=== PATIENT | male | born 1960 | race Caucasian/White ===

== ENCOUNTER → 2021-02-17 02:22 | Outpatient (CLI) | payer BC, SELFPAY ==
[2021-02-17 18:15] LABS: SARS-CoV-2 RNA PCR Negative
== END ==
PROVIDERS: PCP Internal Medicine; Visit Provider Internal Medicine Gastroenterology
DX: Z01.812 Encounter for preprocedural laboratory examination (principal); Z20.822 Contact with and (suspected) exposure to COVID-19
CPT/HCPCS: C9803; U0003; U0005

== ENCOUNTER 2021-02-20 01:49 | Day surgery (SDC) | payer BC, SELFPAY ==
[2021-02-15 14:31] VITALS: BMI 21.7
[2021-02-20 10:54] VITALS: BP 131/92; PULSE 87; RESP 20; TEMP 36.6; O2SAT 100; BMI 20.8
--- NOTE | 2021-02-20 11:00 | WPDANESEPPF ---
Anes - Initial Pre Proc Eval Procedure: Operation Date: 02/20/21 11:30 Proposed Procedures p Esophagogastroduodenoscopy - Gordo Bah MD Date/Time: 02/20/21 11:00 Surgeon: Gordo Bah MD Pre Op Diagnosis: dysphagia Patient Data Age: 60 Gender: M Height: 1.68 m Weight: 58.6 kg Last Vital Signs Temp 36.6 C 02/20/21 10:54 Pulse 87 02/20/21 10:54 Resp 20 02/20/21 10:54 BP 131/92 H 02/20/21 10:54 Pulse Ox 100 02/20/21 10:54 Allergies Allergy/AdvReac Type Severity Reaction Status Date / Time No Known Allergies Allergy Unknown Verified 02/20/21 10:53 Home Medications Medication Instructions Recorded Confirmed Type niacin 500 mg tablet 500 mg PO DAILY 01/01/20 02/15/21 History omeprazole magnesium 20 mg 20 mg PO DAILY 12/06/20 02/15/21 History tablet,delayed release simvastatin 20 mg tablet 20 mg PO DAILY #90 tablet 12/06/20 02/15/21 Rx Patient hx anesthesia problems: none Family hx anesthesia problems: none PMFSH Past Medical History Medical History (Updated 02/20/21 @ 11:01 by Tonio Galeas MD) Benign essential hypertension Chronic headaches GERD (gastroesophageal reflux disease) Other and unspecified hyperlipidemia Family History Family History Mother Family history of elevated blood lipids Father Family history of diabetes mellitus in first degree relative Diabetes mellitus Hypertension Sibling Family history of diabetes mellitus in first degree relative Social History Social History Smoking status: Never smoker Second hand tobacco smoke exposure: No Alcohol intake: current Alcohol use details: RARELY Substance use: never Substance use type: does not use Living arrangements: alone Spiritual care concerns: No Anes - Eval Final PreProcedure Day of Procedure 02/20/21 11:00 Patient weight: overweight Heart: regular rate and rhythm Lungs: clear to auscultation and normal air movement Airway: Mallampati scale class II Neurological: alert and oriented Last oral intake: >/= 8 hours ASA classification: II Emergent: no Anesthetic plan: proceed Anesthesia type and monitoring: general GIVS Informed Consent: The patient's anesthetic plan and its attendant risks and benefits were discussed with the patient/family/POA. Questions were solicited and answers provided to the satisfaction of the patient/family/POA.
[2021-02-20] MEDS: LACTATED RINGERS 1,000 ML 150 ML IV CONT (11:05)
--- NOTE | 2021-02-20 11:26 | PM.HPGS ---
History of Present Illness History of Present Illness Consent: Risks, benefits, and alternatives have been discussed and questions answered. Patient agrees to proceed with procedure. Chief complaint: dysphagia Narrative: Bruce Goodrich is a 60 year old male With intermittent dysphagia for solid food. His brother and father also had swallowing issues requiring esophageal dilatation. Review of Systems Review of Systems: All systems reviewed & are unremarkable except as noted in HPI and below PMFSH Past Medical History Medical History Benign essential hypertension Chronic headaches GERD (gastroesophageal reflux disease) Other and unspecified hyperlipidemia Family History Family History Mother Family history of elevated blood lipids Father Family history of diabetes mellitus in first degree relative Diabetes mellitus Hypertension Sibling Family history of diabetes mellitus in first degree relative Social History Social History Smoking status: Never smoker Second hand tobacco smoke exposure: No Alcohol intake: current Alcohol use details: RARELY Substance use: never Substance use type: does not use Living arrangements: alone Spiritual care concerns: No Meds Home Medications and Allergies Home Medications Medication Instructions Recorded Confirmed Type niacin 500 mg tablet 500 mg PO DAILY 01/01/20 02/15/21 History omeprazole magnesium 20 mg 20 mg PO DAILY 12/06/20 02/15/21 History tablet,delayed release simvastatin 20 mg tablet 20 mg PO DAILY #90 tablet 12/06/20 02/15/21 Rx Allergies Allergy/AdvReac Type Severity Reaction Status Date / Time No Known Allergies Allergy Unknown Verified 02/20/21 10:53 Vital Signs Vital Signs - 24 hr 02/20/21 10:54 Temperature 36.6 C Pulse Rate 87 Respiratory Rate 20 Blood Pressure 131/92 H Pulse Oximetry 100 Exam Resp: Auscultation: clear to auscultation bilaterally Cardio: Rate: regular rate Rhythm: regular rhythm GI: GI Palp: Yes Soft to palpation and No Tenderness to palpation present (GI) Assessment and Plan Assessment and plan (1) Dysphagia: Code(s): R13.10 - Dysphagia, unspecified Status: Acute Assessment and Plan: EGD with possible biopsy or dilatation or cautery.
[2021-02-20] MEDS: BENZOCAINE (*SP) 60 ML SPRAY CAN (HURRICAINE) 1 SPRAY MUCOUS MEM (11:56)
[2021-02-20 12:18] VITALS: BP 101/69; PULSE 82; RESP 28; O2SAT 95
[2021-02-20 12:28] VITALS: BP 102/69; PULSE 75; RESP 17; O2SAT 97
[2021-02-20 12:38] VITALS: BP 110/76; PULSE 75; RESP 18; O2SAT 100
== END 2021-02-20 12:50 | disposition home or self-care (01) ==
PROVIDERS: PCP Internal Medicine; Visit Provider Internal Medicine Gastroenterology
PROC: 0DJ08ZZ Inspection of Upper Intestinal Tract, Via Natural or Artificial Opening Endoscopic (ICD-10-PCS; CPT 43235; principal; 2021-02-20 11:30)
DX: K22.2 Esophageal obstruction (principal); K44.9 Diaphragmatic hernia without obstruction or gangrene; I10 Essential (primary) hypertension; K21.9 Gastro-esophageal reflux disease without esophagitis; E78.5 Hyperlipidemia, unspecified
CPT/HCPCS: 43239; 43249; 87081; 88305; C1726; J2704; J7120

== ENCOUNTER 2022-03-01 01:02 | Day surgery (SDC) | payer BC, SELFPAY ==
[2022-02-09 13:48] VITALS: BMI 21.8
--- NOTE | 2022-02-28 12:51 | PM.HPGS ---
History of Present Illness History of Present Illness Consent: Risks, benefits, and alternatives have been discussed and questions answered. Patient agrees to proceed with procedure. Chief complaint: positive cologaurd Narrative: Bruce Goodrich is a 61 year old male Referred for colon cancer screening. Recent Cologuard test was positive Review of Systems Review of Systems: All systems reviewed & are unremarkable except as noted in HPI and below PMFSH Past Medical History Medical History Benign essential hypertension Chronic headaches GERD (gastroesophageal reflux disease) Other and unspecified hyperlipidemia Family History Family History Mother Family history of elevated blood lipids Father Family history of diabetes mellitus in first degree relative Diabetes mellitus Hypertension Sibling Family history of diabetes mellitus in first degree relative Social History Social History Smoking status: Never smoker Second hand tobacco smoke exposure: No Alcohol intake: current Alcohol use details: RARELY Substance use: never Substance use type: does not use Living arrangements: with family Spiritual care concerns: No Meds Home Medications and Allergies Home Medications Medication Instructions Recorded Confirmed Type niacin 500 mg tablet 500 mg PO DAILY 01/01/20 02/09/22 History omeprazole magnesium 20 mg 20 mg PO DAILY 12/06/20 02/09/22 History tablet,delayed release simvastatin 40 mg tablet 40 mg PO DAILY #90 tabs 12/19/21 02/09/22 Rx sodium sul 1.479 gram-potas ch See Rx Instructions PO PER PKG DIR 01/25/22 02/09/22 Rx 0.188 gram-magnes sul 0.225 gram #24 tabs tablet (Sutab) Allergies Allergy/AdvReac Type Severity Reaction Status Date / Time No Known Allergies Allergy Unknown Verified 12/19/21 08:18 Exam Const: General: alert Orientation/consciousness: patient oriented x3 Resp: Auscultation: clear to auscultation bilaterally Cardio: Rhythm: regular rhythm GI: GI Palp: Yes Soft to palpation and No Tenderness to palpation present (GI) Neuro: General: patient oriented x3 Assessment and Plan Assessment and plan (1) Screening for colon cancer: Code(s): Z12.11 - Encounter for screening for malignant neoplasm of colon Status: Acute Assessment and Plan: Colonoscopy with possible biopsy or polypectomy or cautery or injection of substances.
--- NOTE | 2022-02-28 15:27 | P.PNAN_ITS ---
Anes - Initial Pre Proc Eval Procedure: Operation Date: 03/01/22 08:00 Proposed Procedures p Screening Colonoscopy - Gordo Bah MD Date/Time: 02/28/22 15:27 Surgeon: Gordo Bah MD Pre Op Diagnosis: positive cologaurd Patient Data Age: 61 Gender: M Height: 1.68 m Weight: 61.3 kg Allergies Allergy/AdvReac Type Severity Reaction Status Date / Time No Known Allergies Allergy Unknown Verified 12/19/21 08:18 Home Medications Medication Instructions Recorded Confirmed Type niacin 500 mg tablet 500 mg PO DAILY 01/01/20 02/09/22 History omeprazole magnesium 20 mg 20 mg PO DAILY 12/06/20 02/09/22 History tablet,delayed release simvastatin 40 mg tablet 40 mg PO DAILY #90 tabs 12/19/21 02/09/22 Rx sodium sul 1.479 gram-potas ch See Rx Instructions PO PER PKG DIR 01/25/22 02/09/22 Rx 0.188 gram-magnes sul 0.225 gram #24 tabs tablet (Sutab) Patient hx anesthesia problems: none Family hx anesthesia problems: none Results Review: All pre-operative results and documents have been reviewed as part of the pre- operative evaluation. [facility] Past Medical History Medical History Benign essential hypertension Chronic headaches GERD (gastroesophageal reflux disease) Other and unspecified hyperlipidemia Family History Family History Mother Family history of elevated blood lipids Father Family history of diabetes mellitus in first degree relative Diabetes mellitus Hypertension Sibling Family history of diabetes mellitus in first degree relative Social History Social History Smoking status: Never smoker Second hand tobacco smoke exposure: No Alcohol intake: current Alcohol use details: RARELY Substance use: never Substance use type: does not use Living arrangements: with family Spiritual care concerns: No Anes - Eval Final PreProcedure Day of Procedure 02/28/22 15:27 Patient weight: normal Heart: regular rate and rhythm Lungs: clear to auscultation Airway: Mallampati scale class II Neurological: alert and oriented Last oral intake: >/= 8 hours ASA classification: II Emergent: no Anesthetic plan: proceed Anesthesia type and monitoring: general GIVS and standard monitoring Results Review: All pre-operative results and documents have been reviewed as part of the pre- operative evaluation. Informed Consent: The patient's anesthetic plan and its attendant risks and benefits were discussed with the patient/family/POA. Questions were solicited and answers provided to the satisfaction of the patient/family/POA.
[2022-03-01 06:51] VITALS: BMI 20.9
[2022-03-01 06:52] VITALS: BP 136/90; PULSE 82; RESP 18; TEMP 36.5; O2SAT 100
[2022-03-01] MEDS: LACTATED RINGERS 1,000 ML 150 ML IV CONT (07:09)
[2022-03-01] MEDS: SIMETHICONE ORAL SUSPENSION 20 MG/0.3 ML 30 ML BOTTLE 0.6 ML IRRIGATION (08:00)
[2022-03-01 08:07] VITALS: BP 108/76; PULSE 83; O2SAT 98
[2022-03-01 08:17] VITALS: BP 110/78; PULSE 78; RESP 16; O2SAT 100
[2022-03-01 08:27] VITALS: BP 120/79; PULSE 74; RESP 16; O2SAT 100
== END 2022-03-01 08:34 | disposition home or self-care (01) ==
PROVIDERS: PCP Internal Medicine; Visit Provider Internal Medicine Gastroenterology
PROC: 0DJD8ZZ Inspection of Lower Intestinal Tract, Via Natural or Artificial Opening Endoscopic (ICD-10-PCS; CPT 45378; principal; 2022-03-01 08:00)
DX: Z12.11 Encounter for screening for malignant neoplasm of colon (principal); K64.8 Other hemorrhoids; R19.5 Other fecal abnormalities; I10 Essential (primary) hypertension; K21.9 Gastro-esophageal reflux disease without esophagitis; E78.49 Other hyperlipidemia
CPT/HCPCS: 45378; J2704; J7120